=== PATIENT | female | born 1970 | race Hispanic/Latino ===

== ENCOUNTER 2017-01-31 20:17 | Emergency (ER) | payer OTHER ==
[2017-01-31 21:32] LABS: Basophils % (Auto) 0.9 % (0.0-1.8); Eosinophils % (Auto) 0.6 % (0.0-4.3); Hematocrit 36.8 % (30.3-42.9); Hemoglobin 11.8 gm/dl (10.1-14.3); Mean Corpuscular HGB Conc 32 % (30-34); Mean Corpuscular Hemoglobin 26 pg (28-32); Mean Corpuscular Volume 82 fl (79-97); Platelet Count 279 K/mm3 (140-440); Red Blood Count 4.47 M/mm3 (3.65-5.03); White Blood Count 5.3 K/mm3 (4.5-11.0)
[2017-01-31 21:33] LABS: Red Cell Distribution Width 23.8 % (13.2-15.2)
[2017-01-31 21:43] LABS: Anion Gap 25 mmol/L; BUN/Creatinine Ratio 16.66; Blood Urea Nitrogen 10 mg/dL (7-17); Carbon Dioxide 24 mmol/L (22-30); Chloride 100.2 mmol/L (98-107); Glucose 108 mg/dL (65-100); Potassium 4.1 mmol/L (3.6-5.0); Sodium 145 mmol/L (137-145)
[2017-01-31 21:50] LABS: Urine Drugs of Abuse Note Disclamer
[2017-01-31 22:23] LABS: Bacteria,Urine 1+ /HPF (Negative); Bilirubin,Urine NEG (Negative); Blood,Urine SM (Negative); Ketones,Urine NEG (Negative); Leukocyte Esterase,Urine NEG (Negative); Mucus,Urine FEW /HPF; Nitrite,Urine NEG (Negative); Urobilinogen,Urine < 2.0 mg/dL (<2.0)
[2017-02-01] MEDS ORDERED: ZOFRAN IV ONE ×2 (05:48→07:39)
[2017-02-01] MEDS ORDERED: NACL 0.9% 1000 ML 1,000 ML IV ONE (07:39)
[2017-02-01] MEDS ORDERED: ATIVAN IV ONE (07:39)
--- NOTE | 2017-02-01 07:43 | Emergency Department Report ---
ED Alcohol HPI - General Chief Complaint: Medical Clearance Stated Complaint: MEDICAL CLEARANCE Time Seen by Provider: 02/01/17 07:33 Source: patient Mode of arrival: Ambulatory Limitations: No Limitations - History of Present Illness Initial Comments: Ms. Bowers is a 46 years old female coming in for medical clearance for alcohol detox. Patient stated that she's been drinking daily for the last 7 days. She is been into rehabilitation 4 months ago. Patient denied any suicidal or homicidal ideation no auditory or visual hallucination. MD Complaint: alcohol intoxication Last Drink: just [employer] Chronic Alcohol Use: Yes Previous Visits for Alcohol Intoxication?: Yes Recent Trauma: No Associated Symptoms: nausea, vomiting Treatments Prior to Arrival: none - Related Data Home Medications Medication Instructions Recorded Confirmed Last Taken Metoprolol [Lopressor] 25 mg PO BID 02/01/17 02/01/17 02/01/17 Pantoprazole [Protonix TAB] 20 mg QDAY 02/01/17 02/01/17 01/31/17 Allergies Allergy/AdvReac Type Severity Reaction Status Date / Time erythromycin base Allergy Itching Verified 02/01/17 05:43 ED Review of Systems ROS: Stated complaint: MEDICAL CLEARANCE Other details as noted in HPI Constitutional: denies: chills, diaphoresis ENT: denies: throat pain Respiratory: denies: cough, shortness of breath Cardiovascular: denies: chest pain, palpitations Gastrointestinal: nausea, vomiting. denies: abdominal pain, diarrhea Neurological: denies: headache, numbness ED Past Medical Hx - Past Medical History Previous Medical History?: No - Surgical History Past Surgical History?: Yes Hx Cholecystectomy: Yes - Social History Smoking Status: Current Some Day Smoker Substance Use Type: Alcohol - Medications Home Medications: Home Medications Medication Instructions Recorded Confirmed Last Taken Type Metoprolol [Lopressor] 25 mg PO BID 02/01/17 02/01/17 02/01/17 History Pantoprazole [Protonix TAB] 20 mg QDAY 02/01/17 02/01/17 01/31/17 History ED Physical Exam - General Limitations: No Limitations General appearance: alert, in no apparent distress - Head Head exam: Present: atraumatic, normocephalic, normal inspection - ENT ENT exam: Present: normal exam - Neck Neck exam: Present: normal inspection, full ROM. Absent: tenderness, meningismus, lymphadenopathy, thyromegaly - Respiratory Respiratory exam: Present: normal lung sounds bilaterally. Absent: respiratory distress, wheezes, rales, rhonchi, chest wall tenderness - Cardiovascular Cardiovascular Exam: Present: regular rate, normal rhythm, normal heart sounds - GI/Abdominal GI/Abdominal exam: Present: soft. Absent: distended, tenderness, guarding, rebound, rigid - Extremities Exam Extremities exam: Present: normal inspection - Neurological Exam Neurological exam: Present: alert, oriented X3, CN II-XII intact - Psychiatric Psychiatric exam: Present: normal affect, normal mood, anxious. Absent: depressed, agitated, flat affect, manic, homicidal ideation, suicidal ideation - Skin Skin exam: Present: warm, intact. Absent: cyanosis ED Course Vital Signs 01/31/17 02/01/17 02/01/17 21:07 01:39 05:44 Temperature 98.5 F 98.4 F Pulse Rate 114 H 87 108 H Respiratory 18 18 22 Rate Blood Pressure 157/120 147/109 Blood Pressure 160/110 [Right] O2 Sat by Pulse 96 98 97 Oximetry 02/01/17 06:30 Temperature Pulse Rate 83 Respiratory 20 Rate Blood Pressure Blood Pressure 157/98 [Right] O2 Sat by Pulse 98 Oximetry - Reevaluation(s) Reevaluation #1: 02/01/17 12:13 Patient stated that she is feeling better no shaking. Alcohol level is 0.01. Patient will be discharged home with her son she decided to look for detox facility by herself. ED Medical Decision Making - Lab Data Result diagrams: 01/31/17 21:16 01/31/17 21:16 Critical care attestation.: If time is entered above; I have spent that time in minutes in the direct care of this critically ill patient, excluding procedure time. ED Disposition Clinical Impression: Alcohol intoxication Disposition: DC-01 TO HOME OR SELFCARE Is pt being admited?: No Condition: Stable Instructions: Abuse of Alcohol (ED) Referrals: PRIMARY CARE, [Primary Care Provider] - 3-5 Days
[2017-02-01 12:22] VITALS: BP 143/87
== END 2017-02-01 12:46 | disposition home or self-care (01) ==
LOC: ED 20:17
DX: F10.129 Alcohol abuse with intoxication, unspecified (principal); F17.200 Nicotine dependence, unspecified, uncomplicated
CPT/HCPCS: 36415; 80048; 80307; 81001; 84703; 85025; 96361; 96374; 96375; 96376; 99283; G0480; J2060; J2405; J7030; 80320